=== PATIENT | male | born 1995 | race Caucasian/White ===

== ENCOUNTER 2020-05-15 13:03 | Emergency (ER) | payer OTHER ==
--- NOTE | 2020-05-15 13:31 | ED Physician Documentation ---
History of Present Illness - Stated complaint Stated Complaint: MALE - Chief complaint Chief Complaint: General - History obtained from History obtained from: Patient - History of Present Illness Timing: How many days ago (3) Pain level max: 6 Pain level now: 5 - Additonal information Additional information: patient states rectal pain for 3 days. Works driving a truck and delivering appliances. States [employer]. States history of hemorrhoids and feels similar. No history of rectal intercourse, STD, or foreign body. worse with BM. No constipation. Review of Systems Ten Systems: 10 systems reviewed and negative Constitutional: denies: Fever, Chills GI: denies: Vomiting Skin: denies: Rash Musculoskeletal: denies: Neck pain, Back pain Neurologic: denies: Headache PD PAST MEDICAL HISTORY - Past Medical History Past Medical History: No - Past Surgical History Past Surgical History: No - Present Medications Home Medications: Ambulatory Orders Medication Instructions Recorded Confirmed Docusate Sodium 250Mg Capsule 250 mg PO DAILY #30 capsule 05/15/20 [Colace 250Mg Capsule] Nitroglycerin [Rectiv] 1 applic RC BID PRN #1 oint...g. 05/15/20 - Allergies Allergies/Adverse Reactions: Allergies Allergy/AdvReac Type Severity Reaction Status Date / Time No Known Drug Allergies Allergy Verified 05/15/20 13:05 - Living Situation Living Arrangement: reports: At home - Social History Does the pt drink ETOH?: Yes PD ED PE NORMAL - Vitals Vital signs reviewed: Yes - General General: Alert and oriented X 3, No acute distress - HEENT HEENT: Moist mucous membranes - Neck Neck: Supple, no meningeal sign - Rectal Rectal: Other (small hemorrhoids, none are thrombosed or bleeding. Small rectal fissure at the 6 oclock position. no bleeding. ) - Derm Derm: Warm and dry - Neuro Neuro: Alert and oriented X 3 Results - Vitals Vitals: Vital Signs - 24 hr 05/15/20 13:05 Temperature 36.5 C Heart Rate 118 H Respiratory 16 Rate Blood Pressure 150/80 H O2 Saturation 100 Oxygen O2 Source Room air PD MEDICAL DECISION MAKING - ED course Complexity details: considered differential, d/w patient ED course: Patient with small rectal fissure and non thrombosed hemorrhoids. We will utilize sitz bath, Colace and topical nitroglycerin at home. We will have him follow-up with his doctor for further care. Patient counseled regarding signs and symptoms for which I believe and urgent re-evaluation would be necessary. Patient with good understanding of and agreement to plan and is comfortable going home at this time This document was made in part using voice recognition software. While efforts are made to proofread this document, sound alike and grammatical errors may occur. Departure - Departure Disposition: 01 Home, Self Care Clinical Impression: Anal fissure Hemorrhoid Qualifiers: Hemorrhoid type: unspecified Qualified Code(s): K64.9 - Unspecified hemorrhoids Condition: Good Instructions: Sitz Bath, ED Fissure Anal Ch, ED Hemorrhoids Follow-Up: [facility] [Provider Group] [facility] [Provider Group] Prescriptions: Docusate Sodium 250Mg Capsule [Colace 250Mg Capsule] 250 mg PO DAILY #30 capsule Nitroglycerin [Rectiv] 1 applic RC BID PRN #1 oint...g. PRN Reason: rectal pain Comments: The nitroglycerin will help with any pain you are having. Use gloves whenever using this medication. It can drop your blood pressure. Do not drive or operate heavy machinery until you know how this medication affects you.You should perform sitz bath several times a day as well to help the area heal. The stool softener will help to clear prevent constipation which will also help your fissure heal.
[2020-05-15 13:42] VITALS: BP 145/78
== END 2020-05-15 13:40 | disposition home or self-care (01) ==
LOC: ED 13:03
DX: K64.9 Unspecified hemorrhoids (principal); K60.2 Anal fissure, unspecified
CPT/HCPCS: 99282; 99284